=== PATIENT | male | born 1960 | race Caucasian/White ===

== ENCOUNTER → 2017-02-13 | Outpatient (CLI) | payer OTHER ==
[~2017-02-13] MED LIST: AMLO-110 PO; ATEN-173 PO; ATOR-22 PO; B-CO1CAP3 PO; CALC1TAB25; CHOL400T; FLAX1CAP11; GLUC10007 PO; MISC1CAP60; MULT-506 PO; OMEP40CA41 PO; VITA1CRE PO
[2017-02-13 16:48] LABS: HEMATOCRIT 40.7 % (42-52); MEAN CELL VOLUME 90.4 fL (80-100); MEAN CORPUSCULAR HEMOGLOBIN 32.7 pg (25-34); MEAN CORPUSCULAR HGB CONC 36.1 g/dl (32-36); MEAN PLATELET VOLUME 10.4 fL (7.4-10.4); PLATELET COUNT 231 K/uL (130-400); WHITE BLOOD COUNT 7.55 K/uL (4.8-10.8)
[2017-02-13 17:06] LABS: ALT/SGPT 71 U/L (12-78); BLOOD UREA NITROGEN 16 mg/dl (7-18); BUN/CREATININE RATIO 15.7 (10-20); CALCIUM 9.2 mg/dl (8.5-10.1); CARBON DIOXIDE 28 mmol/L (21-32); CHLORIDE 106 mmol/L (98-107); CHOLESTEROL 153 mg/dl (0-200); GLUCOSE 98 mg/dl (70-99); POTASSIUM 4.1 mmol/L (3.5-5.1); SODIUM 140 mmol/L (136-145); TRIGLYCERIDES 107 mg/dl (0-150); VERY LOW DENSITY LIPOPROT CALC 21 mg/dl
[2017-02-13 17:10] LABS: ALB/GLOB RATIO 1.4 (0.9-2); ALKALINE PHOSPHATASE 111 U/L (45-117); AST/SGOT 42 U/L (15-37); CHOLESTEROL/HDL RATIO 2.7; HDL CHOLESTEROL 56 mg/dl; LDL CHOLESTEROL CALCULATED 76 mg/dl; PROSTATE SPECIFIC ANTIGEN 0.145 ng/ml (0.000-4.000)
== END | disposition home or self-care (01) ==
LOC: C.LABBFT 14:19
PROVIDERS: ATTEND Internal Medicine
DX: Z00.00 Encounter for general adult medical examination without abnormal findings (principal); Z12.5 Encounter for screening for malignant neoplasm of prostate